=== PATIENT | female | born 1970 | race Caucasian/White ===

== ENCOUNTER 2019-02-06 03:30 | Emergency (ER) | payer SELFPAY ==
[~2019-02-06] VITALS: Ht 157.5 cm; Wt 81.8 kg
[2019-02-06 03:34] VITALS: Ht 157.5 cm; Wt 81.8 kg
[2019-02-06 03:47] LABS: APPEARANCE CLEAR (CLEAR); BILIRUBIN NEGATIVE (NEGATIVE); COLOR YELLOW (YELLOW); GLUCOSE NEGATIVE (NEGATIVE); HCG URINE NEGATIVE (NEGATIVE); KETONE NEGATIVE (NEGATIVE); NITRITE NEGATIVE (NEGATIVE); PROTEIN NEGATIVE (NEGATIVE); UROBILINOGEN NORMAL (NORMAL)
[2019-02-06 03:55] LABS: BASOPHILS 0.1 % (0-2); EOSINOPHILS 2.4 % (0-7); HEMATOCRIT 41.2 % (36.0-48.0); HEMOGLOBIN 14.4 g/dL (12-16); IMMATURE GRANULOCYTES 0.4 % (0-5); MCH 29.7 pg (26.0-34.0); MCV 84.9 fL (80.0-100.0); MONOCYTES 8.8 % (2-11); NEUTROPHILS 77.3 % (40-80); PLATELET COUNT 209 10x3/uL (130-400); RBC 4.85 10x6/uL (4.00-5.40); RDW 14.4 % (11.5-14.5); WBC 14.1 10x3/uL (4.8-10.8)
[2019-02-06 04:10] LABS: ALBUMIN 3.3 g/dL (3.4-5.0); ANION GAP 14.3 mmol/L (8-16); BILIRUBIN - TOTAL 0.3 mg/dL (0.2-1.3); CALCIUM 8.5 mg/dL (8.5-10.1); CARBON DIOXIDE 23.7 mmol/L (21.0-32.0); CREATININE - SERUM 0.9 mg/dL (0.6-1.3)
[2019-02-06] MEDS ORDERED: PEPCID40 MG PO (04:50)
[2019-02-06 05:12] VITALS: BP 139/96
== END 2019-02-06 05:12 | disposition home or self-care (01) ==
LOC: D.ER 03:30
PROVIDERS: Emergency Medicine
DX: R10.9 Unspecified abdominal pain (principal)